=== PATIENT | male | born 1945 | race Caucasian/White ===

== ENCOUNTER → 2023-11-10 12:15 | Outpatient (REF) | payer MEDICARE, SELFPAY | LOC: RAD 12:15 | PROVIDERS: ATTENDING PHYSICIAN Internal Medicine | DX: J40 Bronchitis, not specified as acute or chronic (principal); R06.01 Orthopnea; Z86.16 Personal history of COVID-19 | CPT/HCPCS: 71046 ==

== ENCOUNTER 2024-01-27 17:16 | Emergency (ER) | payer MEDICARE, SELFPAY ==
[2024-01-27 17:19] VITALS: BP 145/80
--- NOTE | 2024-01-27 19:07 | ED.SKININJ ---
HPI-Injury
General
Chief Complaint: Head Injury
Source: patient
Exam Limitations: none
Time Seen by Provider: 01/27/24 18:45
Nursing documentation reviewed up to this point in time: agreed with
Travel History
Have you had any contact with someone who has COVID-19?: No
Do you have any symptoms of coronavirus? Fever > 100 degrees, chills, cough, shortness of breath, sore throat, loss of taste or smell, muscle aches, or headache?: No
History of Present Illness-Injury
Is this injury a work related problem?: No
Is pt an associate of [facility]?: No
Initial Injury comments:
Patient states he tripped in his yard and fell face first onto grass surface. No LOC. Sustained lac to mid forehead. Brought to ED by spouse for eval. 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
Past History
Past History
ED Past Medical History: Arrthythmia, HTN and Hypercholesterolemia
ED Past Surgical History: Other (Hernia repair )
Social History
Tobacco: Non-smoker
Personal:
Living: with family
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
Family History
Family History: Negative Early CAD
Review of Systems
Review of Systems
Allergies reviewed?: Yes
All Other Systems: ROS reviewed and negative except as documented in HPI and ROS
Constitutional: Reports no symptoms
EENT: Reports no symptoms
Respiratory: Reports no symptoms
Cardiac: Reports no symptoms
ABD/GI: Reports no symptoms
Musculoskeletal: Reports no symptoms
Skin: Reports other (Laceration mid forehead)
Neurological: Reports no symptoms
Psychiatric: Reports no symptoms
Skin Exam
Laceration
Mid forehead:
Length in cm: 1
Orientation: vertical
Type of Laceration: simple
Any active bleeding?: no active bleeding
Distal skin color and temperature: normal-warm & good color
Normal distal neurovascular exam: Yes
Range of motion: full
Phy Exam
General Physical Exam
General Presentation: well appearing and no apparent distress
General age: appears stated age
General Skin: warm and dry
General Habitus: normal
General Mental: alert
General Hydration: appears well hydrated
Eye Exam
Eye Exam: PERRL, EOMI, conjunctiva normal and globe normal
Neurological Exam
Neurological Exam: alert, oriented x3, CN II-XII intact, no motor deficits, no sensory deficits, speech normal and normal gait
Osorio Coma Scale
Eye Opening: Spontaneous
Verbal Response: Oriented
Motor Response: Obeys Commands
GCS Total Score: 15
Musculoskeletal Exam
Musculoskeletal Exam: full ROM and neuro vasc intact
Skin Exam
Skin Exam: normal color, warm/dry and no rash
Psychiatric Exam
Psychiatric Exam: normal mood/affect
Course
Orders/Labs/Results
Orders:
Orders
01/27/24 17:22
CT Head W/o Iv Contrast Urgent
Comment: on eliquis
Reason For Exam: head injury
01/27/24 19:06
Tetanus/Diphth/Acelpertussis [Adacel] 0.5 ml IM .ONCE ONE
Vital Signs
Initial and Last Documented VS:
Initial Vital Signs
Temp Pulse Resp BP Pulse Ox
98.1 F 67 18 145/80 96
01/27/24 17:19 01/27/24 17:19 01/27/24 17:19 01/27/24 17:19 01/27/24 17:19
Last Documented Vital Signs
Temp Pulse Resp BP Pulse Ox
98.1 F 67 18 145/80 96
01/27/24 17:19 01/27/24 17:19 01/27/24 17:19 01/27/24 17:19 01/27/24 17:19
Procedures
Laceration Closure
Mid forehead:
Status of Wound: clean
Description of Wound Edges: sharp
Preparation: cleaned with saline
Anesthesia: 1% Lidocaine with epi
Revision/Debridement: routine- no revision
Wound exploration: explored to base- no FB
Type of Closure: single layer closure
Skin Closure Material: 4-0 prolene
Number of sutures: 3
*Radiology
Radiology exam reviewed: radiology read reviewed
*Pulse Oximetry
Patient hypoxic: no
*Critical Care Note
Total Time (30-74mins, 75-104mins- exclusive of procedures): Not Applicable
ED Attending Note
-
Portions of this chart may have been created with voice recognition software.� Occasional wrong word or��sound alike� substitutions may have occurred due to the inherent limitations of voice recognition software.
Discharge Plan
Departure
Patient Disposition: Home (Routine Discharge)
Date of Disposition: 01/27/24
Time of Disposition: 19:03
Patient with high blood pressure during this ER visit?: No
Condition: Good
Covid-19: Not Applicable
Discharge Problem:
Head injury, Forehead laceration
Instructions: Head Injury in Adults (DC), Contusion (DC), Laceration Repair With Stitches (DC)
Prescriptions:
No Action
carvedilol [Coreg] 25 MG tablet
25 mg PO BID
atorvastatin 20 MG tablet
20 mg PO HS
propafenone 225 MG tablet
225 mg PO TID
tamsulosin 0.4 MG capsule
0.4 mg PO DAILY@1800
mupirocin 1 APPLIC ointment
1 applic intranasal BID Qty: 1 0RF
oxycodone 5 MG tablet
5 mg PO Q4HPRN PRN (Reason: moderate-severe pain) Qty: 30 0RF
Rx Instructions:
1 tab moderate pain or 2 if pain severe
Dx total joint replacement
ongoing therapy
sennosides [senna] 1 TABLET tablet
2 tab PO BID 0RF
magnesium hydroxide 30 ML suspension
30 ml PO DAILYPRN PRN (Reason: constipation) 0RF
docusate sodium 100 MG capsule
100 mg PO BID 0RF
warfarin [Jantoven] 2.5 MG tablet
2.5 mg PO QPM Qty: 30 1RF
Rx Instructions:
2 tabs (5 mg) on 01/20 and 01/21 PM; dose to be adjusted by surgeon after INR , 01/22
acetaminophen [Tylenol Arthritis Pain] 650 MG tablet extended release
650 mg PO Q4HWA Qty: 0 0RF
Rx Instructions:
Do not exceed >4000 mg daily.
valsartan-hydrochlorothiazide 1 EACH tablet
1 ea PO DAILY Qty: 0 0RF
Rx Instructions:
Hold if systolic blood pressure <145 while on Oxycodone.
apixaban [Eliquis] 5 MG tablet
5 mg PO BID Qty: 0 0RF
Rx Instructions:
RESUME IN 2 WEEKS WHEN OFF WARFARIN AND INR <2
Activity Restrictions/Additional Instructions:
Sutures can be removed in 5-7 days by your family doctor
Interventions
Interventions:
*ED COVID-19 Vaccine History Last Done: 01/27/24 17:19
Discharge Date and Time
Print Language: JAPANESE
[2024-01-27] MEDS: ADACEL 0.5 ML IM (19:26)
[2024-01-27 19:31] VITALS: BP 119/62
== END 2024-01-27 19:35 | disposition home or self-care (01) ==
LOC: EMR 17:16
PROVIDERS: EMERGENCY PHYSICIAN Emergency Medicine; FAMILY PHYSICIAN Internal Medicine
DX: S01.81XA Laceration without foreign body of other part of head, initial encounter (principal); S09.90XA Unspecified injury of head, initial encounter; W01.0XXA Fall on same level from slipping, tripping and stumbling without subsequent striking against object, initial encounter; I10 Essential (primary) hypertension; E78.00 Pure hypercholesterolemia, unspecified; I48.91 Unspecified atrial fibrillation; I48.92 Unspecified atrial flutter; I42.9 Cardiomyopathy, unspecified; G47.30 Sleep apnea, unspecified; K57.90 Diverticulosis of intestine, part unspecified, without perforation or abscess without bleeding; N40.0 Benign prostatic hyperplasia without lower urinary tract symptoms; M19.90 Unspecified osteoarthritis, unspecified site; Z87.01 Personal history of pneumonia (recurrent); Z87.891 Personal history of nicotine dependence; Z79.01 Long term (current) use of anticoagulants
CPT/HCPCS: 99284; 12011; 90471; 70450; 90715

== ENCOUNTER → 2024-07-09 10:56 | Outpatient (REF) | payer MEDICARE, SELFPAY | LOC: PAVMRI 10:56 | PROVIDERS: ATTENDING PHYSICIAN Specialist; FAMILY PHYSICIAN Internal Medicine | DX: R97.20 Elevated prostate specific antigen [PSA] (principal) | CPT/HCPCS: 72197; A9575 ==

== ENCOUNTER → 2024-07-23 12:20 | Outpatient (REF) | payer MEDICARE, SELFPAY | LOC: RAD 12:20 | PROVIDERS: ATTENDING PHYSICIAN Specialist; FAMILY PHYSICIAN Internal Medicine | DX: R19.00 Intra-abdominal and pelvic swelling, mass and lump, unspecified site (principal) | CPT/HCPCS: 74178; Q9967 ==

== ENCOUNTER → 2024-08-10 12:38 | Outpatient (REF) | payer MEDICARE, SELFPAY | LOC: RCS 12:38 | PROVIDERS: ATTENDING PHYSICIAN Internal Medicine Cardiovascular Disease; FAMILY PHYSICIAN Internal Medicine | DX: I45.10 Unspecified right bundle-branch block (principal); Z86.79 Personal history of other diseases of the circulatory system; I48.0 Paroxysmal atrial fibrillation | CPT/HCPCS: 93306 ==

== ENCOUNTER → 2024-08-16 10:54 | Outpatient (REF) | payer MEDICARE, SELFPAY | LOC: DHCBC/DCA 10:54 | PROVIDERS: ATTENDING PHYSICIAN Nuclear Medicine Nuclear Cardiology; FAMILY PHYSICIAN Internal Medicine | DX: I45.10 Unspecified right bundle-branch block (principal); Z86.79 Personal history of other diseases of the circulatory system; I48.0 Paroxysmal atrial fibrillation | CPT/HCPCS: 78452; 93017; A9500; J2785 ==

== ENCOUNTER 2024-09-05 08:32 | Inpatient (IN) | payer MEDICARE, SELFPAY ==
[2024-08-22 09:20] VITALS: BMI 32.6
[2024-08-22 09:57] LABS: INR 1.08; PT 14.5 Sec (11.4-14.6)
[2024-08-22 10:02] LABS: % Eosinophils 1.2 % (0-6); % Immature Granulocytes 0.3 % (0-0.5); % Lymphocytes 16.7 % (20.5-51.1); % Monocytes 8.7 % (1.7-9.3); % Neutrophils 72.1 % (42.2-75.2); Absolute Basophils 0.1 10^3/uL (0-0.2); Absolute Eosinophils 0.1 10^3/uL (0-0.7); Absolute Monocytes 0.5 10^3/uL (0.1-0.6); Absolute Neutrophils 4.2 10^3/uL (1.4-6.5); Hematocrit 39.7 % (39.0-52.0); Hemoglobin 12.9 g/dL (13.0-18.0); Mean Corp Hgb Conc. 32.5 g/dL (33.0-37.0); Mean Corpuscular Hgb 29.3 pg (27.0-31.0); Mean Platelet Volume 9.3 fL (7.4-10.4); Nucleated Red Blood Cells % 0 % (-); Platelet Count 156 10^3/uL (130-400); Red Blood Cell Count 4.41 10^6/uL (4.70-6.10); Red Cell Dist. Width 14.4 % (11.5-14.5); White Blood Cell Count 5.9 10^3/uL (4.8-10.8)
[2024-08-22 10:15] LABS: APTT 41.3 Sec (23.4-35.0)
[2024-08-22 10:32] LABS: Blood Urea Nitrogen 27 mg/dl (9-20); Calcium 9.4 mg/dl (8.4-10.2); Carbon Dioxide 28 mmol/L (22-30); Chloride 104 mmol/L (98-107); Estimated Creatinine Clearance 71 ml/min; Glucose 94 mg/dl (70-99); Potassium 4.2 mmol/L (3.5-5.1); Sodium 143 mmol/L (135-145); eGFR > 60.00
[2024-09-05] VITALS (27 sets, daily range): BP systolic 104–148; BP diastolic 56–115; BMI 32.4
[2024-09-05] MEDS: NSS 500 IV ×2 (09:11→15:07)
[2024-09-05] MEDS: BACTROBAN NASAL 1 GRAM NASAL (09:12)
[2024-09-05] MEDS: PERIDEX 0.12% ORAL RINSE 15 ML PO (09:12)
--- NOTE | 2024-09-05 09:58 | W.SUR.PREOP ---
Pre-Operative Surgical Note
-
I have examined this patient prior to the performance of the scheduled procedure.
The patient's condition is unchanged from the time of the current History and
Physical and the patient is able to undergo the scheduled procedure.
--- NOTE | 2024-09-05 12:40 | CON.INTV ---
Consultation
Consultation Request
Date/Time Consultation Requested: 09/05/2024 - 1219
Date/Time Consultation Performed: 09/05/2024 - 1236
Requesting Provider: KAY Wilkse
Performing Provider: Delio Culp MD
Reason for Consultation: s/p EVAR
Medical History
-
Chief Complaint: Elective EVAR
History of Present Illness:
78-year-old male former tobacco smoker with a past medical history of paroxysmal A-fib on Eliquis, hypertension, RBBB, BPH, history of cardiomyopathy, personal history COVID-19, and moderate STUART on auto CPAP who presents with elective EVAR. Patient
known to the vascular surgery service with last visit with Dr. Spicer on 08/03/2024. He has a known infrarenal AAA without rupture. Most recent CT abdomen/pelvis from 07/23/2024 showed a 4.7 cm saccular aneurysm of the infrarenal abdominal aorta which
extends posterior-laterally from the infrarenal abdominal aorta. Risks and benefits of vascular intervention were discussed and he agreed to endovascular abdominal aortic aneurysm repair. Today he underwent endovascular repair of his abdominal
aortic aneurysm with an aortobiiliac endograft with proximal infrarenal endograft extension. There were no immediate complications and he was transferred to the ICU postoperatively for further care. [employer] service is now consulted for
additional management/recommendations.
When I saw the patient he was resting in bed in no acute distress. Heart rate 81, saturating 97% on 2 L/min, and BP 119/68. He denies chest pain, SOB, OSULLIVAN, abdominal pain, nausea, fevers or chills.
Of note patient follows with us in the [facility] office with Dr. Angel with last visit on 12/12/2023 patient has a history of STUART and is stable on auto CPAP. He follows with cardiology for his history of A-fib. He was advised to follow-up with us in 1
year. Compliance report from 11/09 - 12/08/2023 showed 100 send compliance on auto-CPAP 10�20 cmH2O with average pressure of 13.6cmH2O, max 14.4cmH2O, with residual AHI 3.3.
PMHx: Paroxysmal A-fib on Eliquis, hypertension, history of cardiomyopathy, RBBB, impaired fasting glucose, BPH, colonic polyps, degenerative disc disease, diverticulosis, STUART on CPAP, history of atrial flutter, personal history COVID-19
PSHx: Tonsillectomy, ventral hernia repair with mesh, history of cardioversion (05/2020), right ÓSCAR, history of cardiac ablation (December 2006)
Past Medical History
Past Medical History: Other (Above as per HPI)
Past Surgical History: Other (Above as per HPI)
Social History
Tobacco: Former Smoker (44-mzpk-pcup history, quit at age 40)
Alcohol: None
Drug: None
Personal:
Living: With Family
Employment: Employed
Family History
Family History: CAD (Father + mother), Diabetes (Mother), Hypertension (Father) and Other (Father: Stroke + AAA; Mother: History of A-fib + stroke)
Allergies / Home Medications
Allergies
Allergy/AdvReac Type Severity Reaction Status Date / Time
No Known Allergies Allergy Verified 09/05/24 08:50
Home Medications
�Medication �Instructions �Recorded �Confirmed �Last Taken �Type
atorvastatin 20 mg tablet 20 mg PO HS High Cholesterol 05/14/20 09/05/24 09/04/24 23:30 History
carvedilol 25 mg tablet (Coreg) 12.5 mg PO BID Blood Pressure 05/14/20 09/05/24 09/04/24 23:30 History
propafenone 225 mg tablet 225 mg PO BID Heart 05/14/20 09/05/24 09/04/24 23:30 History
Disease/Condition
tamsulosin 0.4 mg capsule 0.4 mg PO HS Urinary Issue 12/29/20 09/05/24 09/04/24 23:30 History
acetaminophen 650 mg 650 mg PO Q4HPRN PRN pain 09/05/24 09/05/24 3 Months Ago History
tablet,extended release (Tylenol ~06/06/24
Arthritis Pain)
apixaban 5 mg tablet (Eliquis) 5 mg PO BID Blood Clot 09/05/24 09/05/24 09/03/24 09:00 History
Prevention/Tx
valsartan 320 0.5 tab PO DAILY Blood Pressure 09/05/24 09/05/24 09/04/24 23:30 History
mg-hydrochlorothiazide 25 mg tablet
Review of Systems
-
History Source: Patient
All other systems: Negative unless noted
Vitals / Labs / Diagnostic Testing
Vital Signs
Temp Pulse Resp BP Pulse Ox
97.2 F 56 16 122/75 99
09/05/24 14:25 09/05/24 14:15 09/05/24 14:15 09/05/24 14:15 09/05/24 14:25
Lab Data
09/05/24 12:58
09/05/24 12:58
Laboratory Results
09/05/24
12:58
PT 15.1 H
INR 1.13
APTT 38.7 H
Diagnostic Testing:
Physical Exam
-
HEENT: Normocephalic, Anicteric and Moist Mucous Membranes
Cardiovascular: S1/S2 and Peripheral Edema (negative)
Respiratory: Clear, Wheeze (negative), Rales (negative), Rhonchi (negative) and Non-Labored Respirations
GI: Soft, Distended (Abdominal obesity), Non Tender and Normal Bowel Sounds
Neurology: AO x 3 and Tremors (negative)
Skin: Warm and Dry
General: Respiratory Distress (negative), Comfortable, Fever (negative) and Chills (negative)
Assessment
-
Assessment: 78-year-old male former tobacco smoker with a past medical history of paroxysmal A-fib on Eliquis, hypertension, RBBB, BPH, history of cardiomyopathy, personal history COVID-19, and moderate STUART on auto CPAP who presents with elective
EVAR. Patient known to the vascular surgery service with last visit with Dr. Spicer on 08/03/2024. He has a known infrarenal AAA without rupture. Most recent CT abdomen/pelvis from 07/23/2024 showed a 4.7 cm saccular aneurysm of the infrarenal
abdominal aorta which extends posterior-laterally from the infrarenal abdominal aorta. Risks and benefits of vascular intervention were discussed and he agreed to endovascular abdominal aortic aneurysm repair. On 09/05/2024, he underwent
endovascular repair of his abdominal aortic aneurysm with an aortobiiliac endograft with proximal infrarenal endograft extension. There were no immediate complications and he was transferred to the ICU postoperatively for further care. [employer]
service is now consulted for additional management/recommendations.
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
COVID-19
Impression:
#AAA s/p endovascular repair of abdominal aortic aneurysm with aortobiiliac endograft with proximal infrarenal endograft extension (POD #0)
#History of moderate STUART (baseline AHI: 20.6 from [facility] in March 2016) on auto CPAP (10�20 cmH2O)
#Acute anemia
#Acute thrombocytopenia (mild) due to above
#Paroxysmal A-fib on Eliquis
#History of RBBB
#BPH
#Degenerative joint disease
#History of diverticulosis
#Personal history of COVID-19
#Former tobacco user (23-mcvy-rjet history, quit at age 40)
Plan:
Postoperative surgical intensive care unit monitoring
Supplemental oxygen as needed to maintain SpO2 >90-94%
prn nebulized bronchodilators - not currently bronchospastic
Incentive spirometry encouraged 10x per hour for at least 4 hrs a day
Aspiration precautions
Pain control
Patient brought his CPAP machine from home and was advised to use this during sleep while hospitalized
Neuro and vascular checks per protocol
Maintain MAP>65
Continue with home antihypertensives
Replete electrolytes with K>4, Mg>2
Maintain euglycemia with goal BG 140-180
Continue with statin
Vascular surgery following-correspondence and operative notes reviewed
Transfuse blood products as needed to keep Hb>7g/dL, and plt>50k (given post-operative status)
Continue with Flomax
DVT prophylaxis
Early nutrition
Early mobilization
Patient was advised in December 2023 to follow-up with our office with Dr. Angel in 1 year. He was advised to keep this appointment for STUART on CPAP follow-up.
Critical care statement: A total of 38 minutes of critical care time was provided for this patient today. This includes management of unstable vital signs, evaluation of the patient at bedside, reviewing the patient's pertinent medical records
including radiographs, microbiology, laboratory evaluations, and discussion with primary team, consultants, pharmacy, nutrition, physical therapy, case management, charge nurse, critical care nursing, and respiratory therapy.
[2024-09-05 13:21] LABS: Blood Urea Nitrogen 20 mg/dl (9-20); Calcium 8.8 mg/dl (8.4-10.2); Carbon Dioxide 27 mmol/L (22-30); Chloride 106 mmol/L (98-107); Estimated Creatinine Clearance 89 ml/min; Glucose 106 mg/dl (70-99); Potassium 4.1 mmol/L (3.5-5.1); Sodium 140 mmol/L (135-145); eGFR > 60.00
[2024-09-05 13:24] LABS: Hematocrit 36.5 % (39.0-52.0); Hemoglobin 12.1 g/dL (13.0-18.0); Mean Corp Hgb Conc. 33.2 g/dL (33.0-37.0); Mean Corpuscular Hgb 29.7 pg (27.0-31.0); Mean Corpuscular Volume 89.7 fL (80.0-94.0); Mean Platelet Volume 9.3 fL (7.4-10.4); Platelet Count 137 10^3/uL (130-400); Red Blood Cell Count 4.07 10^6/uL (4.70-6.10); Red Cell Dist. Width 14.4 % (11.5-14.5); White Blood Cell Count 8.1 10^3/uL (4.8-10.8)
[2024-09-05 13:26] LABS: INR 1.13; PT 15.1 Sec (11.4-14.6)
[2024-09-05 13:27] LABS: APTT 38.7 Sec (23.4-35.0)
--- NOTE | 2024-09-05 13:42 | OR.RPT ---
Addendum entered and electronically signed by Jamin Spicer MD 09/06/24 10:47:
Correction to operative note below - verbage notes access 'Bilateral common femoral artery access was obtained...' However, correction - on the LEFT side, proximal SFA access was obtained (not SSIS ARCHITECT) secondary to aberrant high/RP profunda origin.
Original Note:
Operative Report
Operative Report
PROCEDURE DATE: 09/05/2024
Preoperative diagnosis: Abdominal aortic aneurysm
Postoperative diagnosis: Same
Procedure:
1. Endovascular repair of abdominal aortic aneurysm with aortobiiliac endograft (Endologix AFX-2 LFA56-17/I20-30 bifurcated device) with proximal infrarenal endograft extension (Endologix A28-28/C95 V proximal aortic extension).
2. Percutaneous right common femoral artery closure with preclose technique.
3. Pro-glide percutaneous suture closure left common femoral artery puncture site.
4. Supervision and interpretation.
Surgeon: Nayan
Twisting Frame Operator: None
Complications: None
Anesthesia: General
Fluoroscopy:
Time 8.2 minutes
Dose 189 mGy
DAP 54.05
Indications for procedure:
Abdominal aortic aneurysm with concerning saccular morphology, evidence of plaque rupture as etiology. Recommended endovascular repair. Risk/benefits/alternatives also discussed. Patient understood all wish to proceed.
Description of procedure:
Patient was identified brought to the operating room placed on the table in supine position. After the adequate administration of anesthesia and perioperative antibiotics he was prepped and draped in the standard surgical fashion. A standard
preoperative timeout was undertaken and everybody was in agreement the plan. Bilateral common femoral artery access was obtained under direct duplex ultrasound guidance. 6 Kyrgyz sheath was placed over 0.035 inch wire in the right groin. In the
left groin, 7 Kyrgyz sheath was placed. A small 1 cm incision was made around the right sided sheath access, and blunt dissection was undertaken with hemostats to facilitate percutaneous suture delivery. Next, using the ProGlide suture system,
percutaneous sutures were deployed at the 10:00 and 2 o'clock position on the right side in the standard fashion. Suture strands were tagged outside the skin. I exchanged for a short 11 Kyrgyz sheath in that right groin access over the wire.
Patient was given 7000 units of intravenous heparin. Next using a KMP catheter, I guided wire from right groin access into the supraceliac aorta. From the left side, I advanced a snare catheter and snare into the distal aorta positioned just
proximal to the bifurcation. The right sided wire was exchanged for a stiff Lunderquist wire. The patient was given an appropriate dose of heparin. Next I exchanged my right-sided 11 Kyrgyz sheath for an Endologix 17 Kyrgyz sheath which was
advanced into the aorta under fluoroscopy.
I now loaded the [id number] bifurcated Endologix AFX graft ([id number]/I20-30) onto the stiff wire (right sided access) and then advance the affixed contralateral wire through the AFX introducer sheath. The contralateral wire was snared through
the left sided access and brought out through the contralateral left side. The AFX 2 bifurcated device was transferred into the AFX introducer sheath and advanced under fluoroscopy until the distal limbs were above the aortic bifurcation thereby
releasing the limbs of the graft. Confirmation was again performed noting no evidence of wire wrap. With concomitant downward tension on the left sided through and through wire and the right sided main body, the bifurcated graft was seated on the
aortic bifurcation. I then pulled the rip cord to deploy the main body of the endograft. The yellow covering was then pulled over the left wire (contralateral wire) thereby deploying the contralateral iliac limb. Once this was done, a pigtail
catheter was advanced over the left sided contralateral wire access and forward pressure was applied while pulling the wire back to release the wire lock. The pigtail catheter was then advanced into the juxtarenal aorta.
Next the ipsilateral iliac limb deployment was completed by pinning the inner core and retracting the introducer sheath. Next, the inner core was retracted into the sheath, and then the sheath as well as the inner core were advanced into the
juxtarenal aorta. The inner core and delivery system was then removed maintaining the sheath in place. Next, we advanced the proximal aortic extension which was an infrarenal extension (A28-28/C95 V). I elected to extend up close to the level the
renal arteries given the patient's family history of aortic aneurysm and rupture as well as to exclude the infrarenal aorta, as well as given the fact that there was a couple centimeters inferior to the renal artery a slightly ectatic area of aorta
that raise concern for eventual degeneration. Once this was positioned in the vicinity of the renal arteries, power injection aortography was obtained. Bilateral renal arteries were marked on the screen (left was lower). We marked the inferior
most position of the left renal artery on the screen. Intentionally, the graft was initially unsheathed slightly high and then carefully pulled down so that it was positioned just inferior to left renal artery. Deployment/unsheathing then was
completed, and delivery mechanism was removed from the sheath. Coda balloon was then inserted and proximal and distal seal zones and overlap seal zones balloon molded. Completion angiography now demonstrated excellent positioning of the endograft
with good filling of both renal arteries, good apposition of the proximal and distal seals, good filling of both internal and external iliac arteries. No filling of the aneurysm sac was noted. No endoleak was noted. At this point I was very
satisfied.
Next, I removed the right sided 17 Kyrgyz sheath while cinching down the percutaneous sutures. Once hemostasis was noted the wire was then withdrawn, the knot was tightened with a knot pusher. Hemostasis was mostly noted, but there was still
slight bruise. The knot was then locked and the suture strands trimmed. Manual pressure was also applied, and then full hemostasis was noted. On the left side, I exchanged the 7 Kyrgyz sheath over a Storq wire for a Pro-glide percutaneous suture
delivery device. Pro-glide percutaneous suture was not was then cinched down to the artery. Knot was pushed down with a knot pusher. The knot was locked. Hemostasis was fully achieved bilateral groins with good femoral pulses bilaterally.
Protamine was given to reverse the heparin. The small right groin skin incisions was then closed with 4-0 Monocryl subcuticular stitch and Dermabond was applied. Dressing applied to left groin puncture site. Patient tolerated procedure well. He
had palpable 2+ DP pulses bilaterally upon completion.
[2024-09-05] MEDS: NSS 1000 IV ×2 (15:08→23:19)
[2024-09-05] MEDS: HEPARIN 5000 UNITS SC ×2 (16:39→23:17)
--- NOTE | 2024-09-05 18:34 | PTCARENOTE ---
Updates with vascular team at bedside. Consult update with digital sales assistant team. Continue neurovascular checks and follow up. VS trends as per unit based protocol. Site checks remain intact. at bedside, update plan of post op cares. Continue follow
up rounds.
--- NOTE | 2024-09-05 19:40 | PTCARENOTE ---
On assessment pt AAOx3, denies pain and SOB at this time, bedrest overnight, Q1h neurovascular checks, + pulses, B/L groin sites c/d/i, RA 95%, call hyatt in reach
[2024-09-05] MEDS: RYTHMOL 225 MG PO (20:34)
[2024-09-05] MEDS: LIPITOR 20 MG PO (20:34)
[2024-09-05] MEDS: FLOMAX 0.4 MG PO (20:34)
[2024-09-05] MEDS: TYLENOL 650 MG PO (20:34)
[2024-09-05] MEDS: NSS IV (23:17)
[2024-09-06] VITALS (18 sets, daily range): BP systolic 94–122; BP diastolic 56–75; BMI 33.1
--- NOTE | 2024-09-06 | PTCARENOTE ---
pt has own BIPAP at bedside, denies pain, call hyatt in reach
[2024-09-06] MEDS: TYLENOL 650 MG PO ×2 (03:39→09:34)
[2024-09-06 04:15] LABS: Hematocrit 36.3 % (39.0-52.0); Hemoglobin 12.1 g/dL (13.0-18.0); Mean Corp Hgb Conc. 33.3 g/dL (33.0-37.0); Mean Corpuscular Hgb 29.4 pg (27.0-31.0); Mean Corpuscular Volume 88.3 fL (80.0-94.0); Mean Platelet Volume 9.5 fL (7.4-10.4); Platelet Count 142 10^3/uL (130-400); Red Blood Cell Count 4.11 10^6/uL (4.70-6.10); Red Cell Dist. Width 14.4 % (11.5-14.5); White Blood Cell Count 10.2 10^3/uL (4.8-10.8)
[2024-09-06 04:19] LABS: INR 1.09; PT 14.6 Sec (11.4-14.6)
[2024-09-06 04:20] LABS: APTT 34.7 Sec (23.4-35.0)
[2024-09-06 04:27] LABS: Blood Urea Nitrogen 18 mg/dl (9-20); Calcium 8.8 mg/dl (8.4-10.2); Carbon Dioxide 25 mmol/L (22-30); Chloride 107 mmol/L (98-107); Estimated Creatinine Clearance 101 ml/min; Glucose 137 mg/dl (70-99); Potassium 4.1 mmol/L (3.5-5.1); Sodium 142 mmol/L (135-145); eGFR > 60.00
--- NOTE | 2024-09-06 05:58 | PTCARENOTE ---
Pt c/o of slight discomfort to hui area, PRN meds given see MAR, +pulses, b/l groin remains c/d/i, call hyatt in reach
--- NOTE | 2024-09-06 08:13 | W.PN.VS ---
Addendum entered and electronically signed by Jamin Spicer MD 09/06/24 13:47:
Seen and examined earlier this a.m. with ARMAAN Nails. This is a late entry. Agree with findings as noted below. Patient without significant complaints. Abdomen soft, nondistended, nontender. Groins flat bilaterally. No hematomas. Feet warm with
palpable pedal pulses. Plan/as discussed and noted below.
Original Note:
Today's Communication / Plan
-
Patient seen and examined at bedside with Dr. Jamin Spicer, below plan reviewed with attending.
Assessment/Plan
-
Assessment: 78 year old male POD#1 EVAR
Plan:
Discontinue IV fluids
Discontinue Rodríguez catheter
OOB to chair with progression to ambulation
Reinitiate home Eliquis
Possible discharge later today
Subjective Data
-
Date of Service: September 06, 2024
Patient seen and examined at bedside, offers no complaints. Denies nausea, vomiting, fever, and chills.
Objective Data
-
Vital Signs
Temp Pulse Resp BP Pulse Ox
97.2 F 54 14 97/68 95
09/06/24 03:26 09/06/24 06:30 09/06/24 06:30 09/06/24 06:00 09/06/24 06:30
Intake and Output
09/05/24 09/06/24 09/07/24
06:59 06:59 06:59
Intake Total 2030 / 2030
Output Total 1585 / 1585
Balance 445 / 445
Intake:
Oral fluids 750 / 750
IV fluids (Total) 1280 / 1280
Nss 1,000 ml @ 80 mls/hr IV . 1280 / 1280
[id number] MICHAEL Rx#:[id number]
Output:
Urine, Rodríguez 1585 / 1585
Lab Results
09/06/24 03:46
09/06/24 03:46
Calcium 8.8 mg/dl (8.4-10.2) 09/06/24 03:46
Physical Exam
-
AAOx3, NAD
No tachycardia
No dyspnea
ABD non-tender, non-distended
BL groin site CDI, no evidence of hematoma
BL DP +2
Rodríguez draining clear yellow urine
--- NOTE | 2024-09-06 08:28 | W.PN.INTV ---
Today's Communication / Plan
Recommendations
Up OOB as tolerated
Encouraged incentive spirometer use
Monitor urine output s/p Rodríguez removal; encourage PO/fluid intake
Pain control
Outpatient pulmonary/sleep office follow-up
Patient is likely being discharged home today. Field Clinical Engineer/Pulmonary services will continue to follow along while he remains in the ICU. Once downgraded to telemetry vs discharged home, then we will sign off at that time. Please re-consult/call
back if there are any additional questions or concerns.
Assessment
-
Assessment: 78-year-old male former tobacco smoker with a past medical history of paroxysmal A-fib on Eliquis, hypertension, RBBB, BPH, history of cardiomyopathy, personal history COVID-19, and moderate STUART on auto CPAP who presents with elective
EVAR. Patient known to the vascular surgery service with last visit with Dr. Spicer on 08/03/2024. He has a known infrarenal AAA without rupture. Most recent CT abdomen/pelvis from 07/23/2024 showed a 4.7 cm saccular aneurysm of the infrarenal
abdominal aorta which extends posterior-laterally from the infrarenal abdominal aorta. Risks and benefits of vascular intervention were discussed and he agreed to endovascular abdominal aortic aneurysm repair. On 09/05/2024, he underwent
endovascular repair of his abdominal aortic aneurysm with an aortobiiliac endograft with proximal infrarenal endograft extension. There were no immediate complications and he was transferred to the ICU postoperatively for further care. Field Clinical Engineer
service is now consulted for additional management/recommendations.
Chronic conditions FINANCIAL ANALYSIS ADVISOR: Paroxysmal A-fib on Eliquis, hypertension, history of cardiomyopathy, RBBB, impaired fasting glucose, BPH, colonic polyps, degenerative disc disease, diverticulosis, STUART on CPAP, history of atrial flutter, personal history
COVID-19
Impression:
#AAA s/p endovascular repair of abdominal aortic aneurysm with aortobiiliac endograft with proximal infrarenal endograft extension (POD #1)
#History of moderate STUART (baseline AHI: 20.6 from [facility] in March 2016) on auto CPAP (10�20 cmH2O)
#Acute anemia - stable
#Acute thrombocytopenia (mild) due to above - improving
#Paroxysmal A-fib on Eliquis
#History of RBBB
#BPH
#Degenerative joint disease
#History of diverticulosis
#Personal history of COVID-19
#Former tobacco user (91-zkon-krxl history, quit at age 40)
Plan:
Postoperative surgical intensive care unit monitoring
Supplemental oxygen as needed to maintain SpO2 >90-94%
prn nebulized bronchodilators - not currently bronchospastic
Incentive spirometry encouraged 10x per hour for at least 4 hrs a day
Aspiration precautions
Pain control
Patient brought his CPAP machine from home and was advised to use this during sleep while hospitalized
Neuro and vascular checks per protocol
Maintain MAP>65
Continue with home antihypertensives
Replete electrolytes with K>4, Mg>2
Maintain euglycemia with goal BG 140-180
Continue with statin
Vascular surgery following-correspondence and operative notes reviewed
Transfuse blood products as needed to keep Hb>7g/dL, and plt>50k (given post-operative status)
Continue with Flomax
DVT prophylaxis
Early nutrition
Early mobilization
Patient was advised in December 2023 to follow-up with our office with Dr. Angel in 1 year. He was advised to keep this appointment for STUART on CPAP follow-up.
Patient is likely being discharged home today. Field Clinical Engineer/Pulmonary services will continue to follow along while he remains in the ICU. Once downgraded to telemetry vs discharged home, then we will sign off at that time. Thank you for allowing
us to be involved in the care of this patient, and please re-consult/call back if there are any additional questions or concerns.
Total time spent today was 56 minutes for this encounter. Time includes reviewing laboratory test/imaging results, reviewing pertinent medical records, obtaining and reviewing medical history, performing an appropriate exam, ordering medications,
tests and procedures. Time also includes documentation of this encounter, coordinating patient care and communicating with other healthcare professionals. Total time does not include separately billed tests performed on this date of service.
Subjective Dataa
Subjective Data
Date of Service:
Date of Service: September 06, 2024
Chief Complaint: Field Clinical Engineer Follow Up
Subjective:
Patient seen and evaluated this morning. Currently, heart rate 60, BP 113/59 and sitting in the chair on room air no acute distress. He has no complaints. Wore his CPAP overnight. He is having some difficulty urinating and says that when he pees
it feels like 'razor blades coming out of his penis.' He did have a Rodríguez after admission which has now been removed. He denies chest pain, SOB, OSULLIVAN, abdominal pain, nausea, fevers or chills.
Review of Systems
General: Other (Negative unless mentioned above)
Objective Data
Data Reviewed
Vital Signs / I&O / Oxygen:
Vital Signs
Temp Pulse Resp BP Pulse Ox
97.6 F 54 18 112/65 98
09/06/24 08:13 09/06/24 09:06 09/06/24 09:06 09/06/24 09:06 09/06/24 09:06
Intake and Output
09/05/24 09/06/24 09/07/24
06:59 06:59 06:59
Intake Total 2029 320 / 320
Output Total 1585 / 1985 500 / 500
Balance 445 / 125 -180 / -180
SaO2 98
Nasal Cannula flow liters per 2
minute
Physical Exam
General: Respiratory Distress (negative), Comfortable, Chills (negative) and Sweats (negative)
HEENT: Normocephalic, Anicteric and Moist Mucous Membranes
Cardiovascular: S1-S2, Rub (negative) and Peripheral Edema (+1 lower extremity edema bilaterally)
Respiratory: Clear, Wheeze (negative), Crackles (negative), Rhonchi (negative) and Non-Labored Respirations
GI: Soft, Distended (Abdominal obesity), Non Tender and Normal Bowel Sounds
Neurology: AO x 3 and Tremors (negative)
Skin: Warm, Dry, Cyanosis (negative), Jaundice (negative) and Other (Chronic venous stasis dermatitis seen in the bilateral lower extremity)
Labs/Micro/Reports
Lab Data
09/06/24 03:46
09/06/24 03:46
Laboratory Results
09/05/24 09/06/24
12:58 03:46
PT 15.1 H 14.6
INR 1.13 1.09
APTT 38.7 H 34.7
[2024-09-06] MEDS: ELIQUIS 5 MG PO (09:33)
[2024-09-06] MEDS: ORETIC 12.5 MG PO (09:35)
[2024-09-06] MEDS: RYTHMOL 225 MG PO (09:35)
[2024-09-06] MEDS: DIOVAN 80 MG PO (10:26)
--- NOTE | 2024-09-06 10:43 | CM ---
regional program manager reviewed patient's chart and met with patient and patient lives with his spouse in a 2 story home, patient is independent with adl's and ambulation, no dme, patient drives, home today no needs
PCP: Dr. Shaw
Pharmacy: [facility] in [place]
[2024-09-06] MEDS: HEPARIN SC (11:38)
--- NOTE | 2024-09-06 11:39 | PTCARENOTE ---
Assessment, vital signs ongoing and as documented. Rodríguez dc'd this am. Patient timed out, did void salomón blood tinged 100ml, non distended, non tender with no urge. Await more efficient urine output to follow along with vascular team. Continue site
checks and follow up. Surgical sites c/d/i with adhesive, non tender and soft. No c/c to offer continue ambulation and mobility protocols.
--- NOTE | 2024-09-06 14:19 | PTCARENOTE ---
Continue with ambulation and mobility. Patient ambulate unit floor with staff supervision. Eating and drink as per orders. Has been pain free thru afternoon. No discomfort or complaints. Continue follow up input/output, bladder scan pvr. Continue
follow up with car salter and vascular teams. Continue follow up void patterns and residuals. Most recent. 100ml urine out, 54ml PVR. Patient reports no distention, no pain or discomfort with palpation, scan as noted. Patient reports less
discomfort with this void. Urine is clear yellow. Working toward possible discharge today.
--- NOTE | 2024-09-06 15:14 | W.DS.TRANS ---
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
-
Discharge Instructions:
Discharge Diagnosis/Procedures EVAR
Diet As tolerated
Activity No strenuous activity
Driving Restrictions No driving for 2 weeks
Bathing Restrictions OK to Shower
Instructions: Sleep apnea in adults
Abdominal aortic aneurysm
Aortic Aneurysm Repair
Stand-Alone Forms: DC Instr - Vascular OR
Changes to Home Medications: No
Discharge Medications:
DC Medications w/original date entered in RPO
atorvastatin 20 mg tablet 20 mg PO HS High Cholesterol 05/14/20
carvedilol 25 mg tablet (Coreg) 12.5 mg PO BID Blood Pressure 05/14/20
propafenone 225 mg tablet 225 mg PO BID Heart Disease/Condition 05/14/20
tamsulosin 0.4 mg capsule 0.4 mg PO HS Urinary Issue 12/29/20
acetaminophen 650 mg tablet,extended release (Tylenol Arthritis Pain) 650 mg PO Q4HPRN PRN pain 09/05/24
apixaban 5 mg tablet (Eliquis) 5 mg PO BID Blood Clot Prevention/Tx 09/05/24
valsartan 320 mg-hydrochlorothiazide 25 mg tablet 0.5 tab PO DAILY Blood Pressure 09/05/24
Home Medication Changes
Pending Results: No
--- NOTE | 2024-09-06 15:16 | W.DCSUMMARY ---
Discharge Summary
Discharge Data
Date of Admission: 09/05/24
Date of Discharge: 09/06/24
-
Pending Results: No
Hospital Course
Attending: Jamin Spicer MD
Consultants: Pulmonary medicine
Allergies: NKDA
Procedure with date: Endovascular repair of abdominal aortic aneurysm with aortobiiliac endograft (Endologix AFX-2 [id number]/I20-30 bifurcated device) with proximal infrarenal endograft extension (Endologix A28-28/C95 V proximal aortic extension).
Percutaneous right common femoral artery closure with preclose technique. Pro-glide percutaneous suture closure left common femoral artery puncture site. Supervision and interpretation. Jamin Spicer on 09/05/2024
History of present illness: The patient is an 78 -year-old male with multiple medical conditions including: hypertension, DJD, anticoagulation, cardiomyopathy, atrial flutter, and COVID. Patient presented on 09/05/2024 for scheduled procedure with
Dr. Jamin Spicer. Patient presented at baseline health with no reports of recent illness or trauma.
Hospital Course: Briefly, the patient underwent scheduled endovascular repair of abdominal aortic aneurysm without complications, and recovered in PACU. Following recovery phase one and two patient was transferred to intensive care unit per protocol
for continued hemodynamic monitoring. Cartridge Assembling Machine Adjuster consulted to aid in medical management from a critical care perspective. POD #1 (09/06/2024) Bilateral groin puncture sites clean, dry, and intact with Exofin glue well approximated and soft. No
evidence of hematoma. Arterial line and IV fluids discontinued. Rodríguez catheter removed and patient with spontaneous void post removal. Patient able to ambulate without difficulty or incident. Patient stable for discharge to home.
Prescriptions and follow up appointment are included in the DC summary mosaic tile maker note. All instructions were given to the patient in both written and verbal form and the patient expressed understanding.
Discharge Plan
-
Patient Disposition: Home (Routine Discharge)
Discharge Diagnosis/Procedures: EVAR
Condition: Good
Diet: As tolerated
Activity: No strenuous activity
Driving Restrictions: No driving for 2 weeks
Bathing Restrictions: OK to Shower
Instructions: Sleep apnea in adults, Abdominal aortic aneurysm, Aortic Aneurysm Repair
Stand Alone Forms: DC Instr - Vascular OR
Referrals:
Stevie Shaw MD [Family Provider] -
Nilam Rodriguez CRNP [Specified Professional Personl] - 09/21/24 9:15 am (Vascular follow up)
Prescriptions:
Continued
carvedilol [Coreg] 25 MG tablet
12.5 mg PO BID
atorvastatin 20 MG tablet
20 mg PO HS
propafenone 225 MG tablet
225 mg PO BID
tamsulosin 0.4 MG capsule
0.4 mg PO HS
valsartan-hydrochlorothiazide 320-25 mg Tablet
0.5 tab PO DAILY
acetaminophen [Tylenol Arthritis Pain] 650 MG tablet extended release
650 mg PO Q4HPRN PRN (Reason: pain)
Rx Instructions:
Do not exceed >4000 mg daily.
Eliquis 5 MG tablet
5 mg PO BID
Rx Instructions:
RESUME IN 2 WEEKS WHEN OFF WARFARIN AND INR <2
Discharge Orders:
Discharge Patient (As Directed); Ordered 09/06/24
Ordered By: Sarika Nails
Discharge Date and Time
Print Language: IVORIAN
--- NOTE | 2024-09-06 16:11 | PTCARENOTE ---
Patient discharged. Vascular team at [facility] updated plan of cares. Teaching packets and graft information provided. update discharge instructions and follow up.
== END 2024-09-06 16:23 | disposition home or self-care (01) | DRG 269 ==
LOC: ICU 08:32
PROVIDERS: Nurse Practitioner Acute Care; ADMITTING PHYSICIAN Surgery Vascular Surgery; CONSULT PHYSICIAN Internal Medicine Critical Care Medicine; FAMILY PHYSICIAN Internal Medicine
PROC: 04V03EZ Restriction of Abdominal Aorta with Branched or Fenestrated Intraluminal Device, One or Two Arteries, Percutaneous Approach (ICD-10-PCS; 2024-09-05)
PROC: 5A09357 Assistance with Respiratory Ventilation, Less than 24 Consecutive Hours, Continuous Positive Airway Pressure (ICD-10-PCS; 2024-09-05)
DX: I71.43 Infrarenal abdominal aortic aneurysm, without rupture (principal); D62 Acute posthemorrhagic anemia; I10 Essential (primary) hypertension; G47.33 Obstructive sleep apnea (adult) (pediatric); I48.0 Paroxysmal atrial fibrillation; N40.0 Benign prostatic hyperplasia without lower urinary tract symptoms; D69.6 Thrombocytopenia, unspecified; E78.5 Hyperlipidemia, unspecified; Z79.899 Other long term (current) drug therapy; Z96.641 Presence of right artificial hip joint; Z86.79 Personal history of other diseases of the circulatory system; Z87.891 Personal history of nicotine dependence; Z86.16 Personal history of COVID-19; Z82.49 Family history of ischemic heart disease and other diseases of the circulatory system; Z82.3 Family history of stroke; Z79.01 Long term (current) use of anticoagulants
CPT/HCPCS: 34705; 34713; 36415; 71046; 80048; 85025; 85027; 85610; 85730; 86850; 86900; 86901; C1760; C1769; C1773; C1874; C1892; C1894; C2628; Q9967

== ENCOUNTER → 2024-10-09 15:52 | Outpatient (REF) | payer MEDICARE, SELFPAY | LOC: RAD 15:52 | PROVIDERS: ATTENDING PHYSICIAN Registered Nurse; FAMILY PHYSICIAN Internal Medicine | DX: I71.43 Infrarenal abdominal aortic aneurysm, without rupture (principal) | CPT/HCPCS: 74174; Q9967 ==

== ENCOUNTER → 2024-10-17 16:05 | Outpatient (REF) | payer MEDICARE, SELFPAY | LOC: RAD 16:05 | PROVIDERS: ATTENDING PHYSICIAN Internal Medicine Cardiovascular Disease; FAMILY PHYSICIAN Internal Medicine | DX: I71.43 Infrarenal abdominal aortic aneurysm, without rupture (principal) | CPT/HCPCS: 71270; Q9967 ==

== ENCOUNTER → 2025-05-13 10:26 | Outpatient (REF) | payer MEDICARE, SELFPAY | LOC: RAD 10:26 | PROVIDERS: ATTENDING PHYSICIAN Surgery Vascular Surgery; FAMILY PHYSICIAN Internal Medicine | DX: I71.43 Infrarenal abdominal aortic aneurysm, without rupture (principal); I48.0 Paroxysmal atrial fibrillation; Z95.828 Presence of other vascular implants and grafts; D64.9 Anemia, unspecified; M79.10 Myalgia, unspecified site; Z79.899 Other long term (current) drug therapy | CPT/HCPCS: 36415; 76770; 82550 ==